=== PATIENT | female | born 1985 ===

== ENCOUNTER 2016-11-10 18:11 | Emergency (ER) | payer OTHER ==
--- NOTE | 2016-11-11 18:52 | ER ---
ADMIT: 11/10/2016 RM/LOC: ER [facility] MR#: [id number] [address] [address] [address] [place], [place] [id number] Emergency Room Report SEX: F AGE: 31 : 1985 DATE: 11/10/2016 HISTORY OF PRESENT ILLNESS: The patient is a 31-year-old female, came here with chief complaint of right facial and right scalp headaches for the last 3 weeks and also allegedly, right upper eyelid swelling. The patient states she has a history of migraine, but she always gets the migraine for a day or maximum 2 days and also migraine resolves with medication and also per patient, migraine is not associated with any eye swelling. The patient denies any visual changes. The patient also complains of 3 weeks of clumsiness during typing and she states for the last 3 weeks, she noticed she had lots of mistakes that she never had before and she believes she is more clumsy in both hands. The patient denies similar episodes in the past. The patient states she contacted primary care physician and since she had no access, she was told to come to the ER. In the ER, the patient states the pain is moderate to severe, 8 to 9/10 in the right face and right frontal and right parietal area, pain is sharp. The patient received p.o. Ruth, which did not resolve the pain. The patient also received IV medication for pain control. PHYSICAL EXAMINATION: VITAL SIGNS: Meanwhile, on the physical examination, the patient is afebrile, normal blood pressure. HEENT: In the head and neck, there is very mild, even unnoticeable, swelling of the right upper eyelid comparing to the left side. The area is nontender, the eyelid was rolled back and there is no lesion in the area. The patient has no tenderness on the temporal arteries. TM joint has no crepitation. She has no photophobia and also no neck pain or stiffness. Eyes; on the examination of the eyes, pupils are 3 mm, reactive to light bilaterally. The patient has normal extraocular movement. There is no open wound or other skin lesions that I can see on the face. The patient had no tenderness over the face or scalp. There is no meningismus. NECK: Soft, trachea is midline. LUNGS: Normal equal breath sounds. HEART: No murmur. Normal S1, S2. ABDOMEN: Soft. NEUROLOGICAL: Motor and sensory exam are normal. Cerebellar test is normal. Cranial nerves are all normal. Gait is normal. The patient has no ataxia. Still considering the patient's presentation with questionable right upper eyelid swelling and headache on one side, which is different from previous headache, and clumsiness allegedly. Although all this could be just caused by migraine, stroke versus other pathologies like multiple sclerosis versus ADMIT: 11/10/2016 RM/LOC: ER [facility] MR#: [id number] [address] [place] [id number] [address] [place] [address] Emergency Room Report SEX: F AGE: 31 : 1985 cavernous sinus thrombosis could also be dealt in our differentials. CT scan of the head was done. At the moment, MRI is not working in the ER and in the hospital, upgrading. After talking to Dr. Rees, radiologist, we did the CT with contrast and we did not see any signs of strokes, bleeding, or cavernous sinus thrombosis. The patient's pain was controlled, the patient was stable, the patient was discharged to home, to be followed by the primary doctor tomorrow morning and the importance of the MRI to rule out other diagnoses as an outpatient was discussed with the patient per primary care physician discretion. The patient acknowledged she understood the risk and she would definitely follow up in the morning with the primary care physician. The patient was told to come to the ER if there are any questions or concerns or new symptoms. The patient was discharged to home. Mic Reina MD/ ludwig JOB #: [id number] CC: Nathanael Avitia MD, Attending Physician Mary Aldridge PA-C, Family Physician
== END 2016-11-10 22:20 | disposition home or self-care (01) ==
LOC: ER 18:11
DX: R51 Headache (principal); H02.841 Edema of right upper eyelid; Z88.1 Allergy status to other antibiotic agents; Z79.01 Long term (current) use of anticoagulants; Z79.899 Other long term (current) drug therapy

== ENCOUNTER 2017-02-03 12:31 | Emergency (ER) | payer OTHER ==
--- NOTE | 2017-02-07 08:25 | ER ---
ADMIT: 02/03/2017 RM/LOC: ER [facility] MR#: [id number] [address] [address] [address] [place] [address] Emergency Room Report SEX: F AGE: 31 : 1985 DATE: 02/03/1970 BRIEF ADDENDUM: Please see my T-sheet for complete review of systems, past medical history, and physical exam. CHIEF COMPLAINT: Injury to right 5th toe. HISTORY OF PRESENT ILLNESS: Pleasant 31-year-old female, presents to the Emergency Department after she stubbed her toe last night. States she was chasing her 2-year-old child when she caught her right 5th toe on a piece of furniture. States she was barefoot at the time. Denies any other injuries. States she has pain with movement of the right 5th toe swelling. Denies any tingling or numbness. COURSE IN THE EMERGENCY ROOM: The patient was seen and examined. She is afebrile and nontoxic. She is in no acute distress. She has some bony tenderness over the right 5th digit. Pain with movement, however, motor is intact, flexion and extension. She has brisk capillary refill. Gait is limited secondary to pain, however, she is to ambulate into the department today. No obvious deformity. No damage to the skin. Sensation intact to light touch. Did do 2 views of the right 5th toe. No obvious fracture dislocation or other abnormalities. IMPRESSION: Right 5th toe contusion. DISPOSITION: Patient was instructed to use Tylenol or ibuprofen for pain. Use a stiff-soled shoe to prevent flexion and decreased pain. She is to ambulate as tolerated, ice 20 minutes 3 times a day. Elevate the limb as needed during work questions sought and answered to best of my ability and patient's satisfaction. Discharged in stable condition. Christopher Linke, PA / Jim Samano MD / ludwig JOB #: [id number] CC: Jim Samano MD, Attending Physician Mary Aldridge, Family Physician
== END 2017-02-03 13:20 | disposition home or self-care (01) ==
LOC: ER 12:31
DX: S90.121A Contusion of right lesser toe(s) without damage to nail, initial encounter (principal); Z98.890 Other specified postprocedural states; Z88.1 Allergy status to other antibiotic agents; W22.03XA Walked into furniture, initial encounter; Y92.009 Unspecified place in unspecified non-institutional (private) residence as the place of occurrence of the external cause